=== PATIENT | female | born 1980 | race Hispanic/Latino ===

== ENCOUNTER 2021-07-01 09:57 | Emergency (ER) | payer SELFPAY ==
[2021-07-01] MEDS ORDERED: BUTALB/ACETAMINOPHEN/CAFFEINE TAB PO ONE (10:20)
[2021-07-01] MEDS ORDERED: lamoTRIgine 25 MG TAB PO ONE (10:20)
--- NOTE | 2021-07-01 10:27 | Emergency Department Report ---
HPI - General Chief Complaint: Seizure Time Seen by Provider: 07/01/21 10:12 - HPI HPI: Room 29 The patient is a 40-year-old female present with a chief complaint of seizure. The patient states she has a history of seizures but has been out of her [facility] for approximately 2 days. Patient was told by other residents in the [facility] [place] that she had a seizure. Patient with a woman brought the patient to the emergency department. The patient states she was initially kicked out of the [facility] however she will be able to come back after going to the hospital. Patient states she does not need case management to assist with housing. Patient now complains of a headache which she states she normally has after her seizures and gives it a score of 9/10 ED Past Medical Hx - Past Medical History Previous Medical History?: Yes Hx Seizures: Yes - Surgical History Additional Surgical History: Thyroidectomy - Family History Family history: no significant - Social History Smoking Status: Current Every Day Smoker (1/2 pack/day) Substance Use Type: None (Denies illicit drug use) - Medications Home Medications: Home Medications Medication Instructions Recorded Confirmed Last Taken Type Zonisamide (Nf) [Zonegran (Nf)] 200 mg PO QDAY #90 capsule 07/01/21 Unknown Rx ED Review of Systems ROS: Stated complaint: SEIZURE Other details as noted in HPI Constitutional: no symptoms reported Eyes: denies: eye pain ENT: denies: throat pain Respiratory: no symptoms reported Cardiovascular: denies: chest pain Endocrine: no symptoms reported Gastrointestinal: denies: abdominal pain Genitourinary: denies: dysuria Musculoskeletal: denies: back pain Neurological: headache Physical Exam - Physical Exam Physical Exam: GENERAL: The patient is well-developed well-nourished female lying on stretcher not appearing to be in acute distress. [] HEENT: Normocephalic. Atraumatic. Extraocular motions are intact. Patient has moist mucous membranes. NECK: Supple. Trachea midline CHEST/LUNGS: Clear to auscultation. There is no respiratory distress noted. HEART/CARDIOVASCULAR: Regular. There is no tachycardia. There is no gallop rub or murmur. ABDOMEN: Abdomen is soft, nontender. Patient has normal bowel sounds. There is no abdominal distention. SKIN: There is no rash. There is no edema. There is no diaphoresis. NEURO: The patient is awake, alert, and oriented. The patient is cooperative. The patient has no focal neurologic deficits. The patient has normal speech. Cranial nerves II through XII grossly intact. GCS 15 MUSCULOSKELETAL: There is no evidence of acute injury. ED Medical Decision Making - Lab Data Result diagrams: 07/01/21 10:22 07/01/21 10:22 Laboratory Tests 07/01/21 07/01/21 07/01/21 10:22 10:22 10:22 WBC 12.9 H RBC 4.30 Hgb 15.3 H Hct 43.7 H MCV 102 H MCH 36 H MCHC 35 H RDW 14.3 Plt Count 235 Lymph % (Auto) 14.8 Sandoval % (Auto) 4.1 Eos % (Auto) 0.6 Baso % (Auto) 0.6 Lymph # (Auto) 1.9 Sandoval # (Auto) 0.5 Eos # (Auto) 0.1 Baso # (Auto) 0.1 Seg Neutrophils % 79.9 H Seg Neutrophils # 10.3 H Sodium 137 Potassium 4.8 Chloride 99.0 Carbon Dioxide 19 L Anion Gap 24 BUN 11 Creatinine 0.5 L Estimated GFR > 60 BUN/Creatinine Ratio 22 Glucose 94 Calcium 8.8 Magnesium 2.10 HCG, Qual Negative - Differential Diagnosis Seizure Critical care attestation.: If time is entered above; I have spent that time in minutes in the direct care of this critically ill patient, excluding procedure time. ED Disposition Clinical Impression: Seizure Disposition: 01 HOME / SELF CARE / HOMELESS Is pt being admited?: No Does the pt Need Aspirin: No Condition: Stable Instructions: Seizure, Adult, [id number] Additional Instructions: Return to the emergency department should you develop worsening symptoms, inability to tolerate food or liquids, high fever or any other concerns Prescriptions: Zonisamide (Nf) [Zonegran (Nf)] 200 mg PO QDAY #90 capsule Referrals: PRIMARY MD VIVIEN [Primary Care Provider] - 3-5 Days [facility] [Provider Group] - 3-5 Days JUSTIN CLINTON MD [Staff Physician] - 3-5 Days Time of Disposition: 11:38
[2021-07-01 11:13] LABS: Basophils # (Auto) 0.1 K/mm3 (0.0-0.1); Basophils % (Auto) 0.6 % (0.0-1.8); Eosinophils # (Auto) 0.1 K/mm3 (0.0-0.4); Eosinophils % (Auto) 0.6 % (0.0-4.3); Hematocrit 43.7 % (30.3-42.9); Hemoglobin 15.3 gm/dl (10.1-14.3); Lymphocytes # (Auto) 1.9 K/mm3 (1.2-5.4); Lymphocytes % (Auto) 14.8 % (13.4-35.0); Mean Corpuscular HGB Conc 35 % (30-34); Mean Corpuscular Volume 102 fl (79-97); Monocytes # (Auto) 0.5 K/mm3 (0.0-0.8); Monocytes % (Auto) 4.1 % (0.0-7.3); Platelet Count 235 K/mm3 (140-440); Red Cell Distribution Width 14.3 % (13.2-15.2)
[2021-07-01 11:34] LABS: Blood Urea Nitrogen 11 mg/dL (7-17); Calcium 8.8 mg/dL (8.4-10.2); Hemolysis Index 74
[2021-07-01 11:37] LABS: BUN/Creatinine Ratio 22
[2021-07-01 11:47] VITALS: BP 130/76
== END 2021-07-01 11:56 | disposition home or self-care (01) ==
LOC: ED 09:57
DX: R56.9 Unspecified convulsions (principal); F17.200 Nicotine dependence, unspecified, uncomplicated
CPT/HCPCS: 36415; 80048; 83735; 84703; 85025; 99283

== ENCOUNTER 2021-08-29 10:12 | Emergency (ER) | payer SELFPAY ==
--- NOTE | 2021-08-29 11:08 | Emergency Department Report ---
HPI - General Chief Complaint: Seizure Time Seen by Provider: 08/29/21 10:20 - HPI HPI: 40-year-old female presents to the emergency department with a complaint of having 2 syncopal episode last night while at work at [employer]. She also says that she was told by her roommate at her detention that she had 2 different seizures while sleeping last night. The patient does have a history of seizure disorder for which she takes zonisamide 100 mg twice daily and says that she is compliant. She also has a history of hypothyroidism, hypertension, high cholesterol. Currently the patient complains of a generalized headache at 6 out of 10 in intensity. She denies any vision change, slurred speech, numbness or paresthesias, chest pain, fever. No recent travel or sick contacts at home. Other than her home medication she has not taken anything for symptoms prior to presentation today. Patient says that she was just working, standing or walking around her [employer] when she passed out. She says "I do not remember most of yesterday." She denies any alcohol or illicit drug use. ED Past Medical Hx - Past Medical History Previous Medical History?: Yes Hx Seizures: Yes - Surgical History Past Surgical History?: Yes Hx Appendectomy: No Additional Surgical History: Thyroidectomy - Social History Smoking Status: Current Every Day Smoker Substance Use Type: Alcohol - Medications Home Medications: Home Medications Medication Instructions Recorded Confirmed Last Taken Type Zonisamide (Nf) [Zonegran (Nf)] 200 mg PO QDAY #90 capsule 07/01/21 08/29/21 08/28/21 19:30 Rx AtorvaSTATin [Lipitor] 20 mg PO QHS 08/29/21 08/29/21 08/28/21 19:30 History Levothyroxine Sodium 50 mcg PO 08/29/21 08/28/21 08:00 History [Levothyroxine] Lisinopril [Zestril] 5 mg PO 08/29/21 08/28/21 08:00 History ED Review of Systems ROS: Stated complaint: "I BLACKED OUT" Other details as noted in HPI Comment: All other systems reviewed and negative Constitutional: denies: chills, fever Eyes: denies: eye pain, vision change ENT: denies: ear pain, throat pain Respiratory: denies: cough, shortness of breath Cardiovascular: syncope. denies: chest pain Gastrointestinal: denies: abdominal pain, vomiting Genitourinary: denies: dysuria, discharge Musculoskeletal: denies: back pain, arthralgia Skin: denies: rash, lesions Neurological: headache, other (Seizures). denies: weakness Physical Exam - Physical Exam Vital Signs: Vital Signs 08/29/21 08/29/21 10:18 10:41 Temperature 98.8 F Pulse Rate 75 Respiratory 17 22 Rate Blood Pressure 150/86 Blood Pressure 158/76 [Right] O2 Sat by Pulse 100 99 Oximetry Physical Exam: GENERAL: The patient is well-developed well-nourished. HENT: Normocephalic. Atraumatic. Patient has moist mucous membranes. EYES: Extraocular motions are intact. No nystagmus. NECK: Supple. Trachea is midline. CHEST/LUNGS: Clear to auscultation. There is no respiratory distress noted. HEART/CARDIOVASCULAR: Regular. There is no tachycardia. There is no murmur. ABDOMEN: Abdomen is soft, nontender. Patient has normal bowel sounds. SKIN: Skin is warm and dry. NEURO: The patient is awake, alert, and oriented. The patient is cooperative. The patient has no focal neurologic deficits. Normal speech. Cranial nerves II through XII grossly intact. No facial asymmetry. MUSCULOSKELETAL: There is no tenderness or deformity. There is no limitation range of motion. ED Course Vital Signs 08/29/21 08/29/21 10:18 10:41 Temperature 98.8 F Pulse Rate 75 Respiratory 17 22 Rate Blood Pressure 150/86 Blood Pressure 158/76 [Right] O2 Sat by Pulse 100 99 Oximetry ED Medical Decision Making - Lab Data Result diagrams: 08/29/21 11:19 08/29/21 11:19 Lab Results 08/29/21 08/29/21 08/29/21 Range/Units 11:19 11:19 11:19 WBC 8.9 (4.5-11.0) K/mm3 RBC 4.30 (3.65-5.03) M/mm3 Hgb 14.9 H (10.1-14.3) gm/dl Hct 44.3 H (30.3-42.9) % MCV 103 H (79-97) fl MCH 35 H (28-32) pg MCHC 34 (30-34) % RDW 14.6 (13.2-15.2) % Plt Count 200 (140-440) K/mm3 Lymph % (Auto) 25.6 (13.4-35.0) % Preston % (Auto) 4.6 (0.0-7.3) % Eos % (Auto) 0.8 (0.0-4.3) % Baso % (Auto) 0.6 (0.0-1.8) % Lymph # (Auto) 2.3 (1.2-5.4) K/mm3 Preston # (Auto) 0.4 (0.0-0.8) K/mm3 Eos # (Auto) 0.1 (0.0-0.4) K/mm3 Baso # (Auto) 0.1 (0.0-0.1) K/mm3 Seg Neutrophils % 68.4 (40.0-70.0) % Seg Neutrophils # 6.1 (1.8-7.7) K/mm3 Sodium 138 (137-145) mmol/L Potassium 3.8 (3.6-5.0) mmol/L Chloride 100.2 (98-107) mmol/L Carbon Dioxide 19 L (22-30) mmol/L Anion Gap 23 mmol/L BUN 10 (7-17) mg/dL Creatinine 0.4 L (0.6-1.2) mg/dL Estimated GFR > 60 ml/min BUN/Creatinine Ratio 25 % Glucose 93 (65-100) mg/dL Calcium 8.3 L (8.4-10.2) mg/dL Total Bilirubin 0.30 (0.1-1.2) mg/dL AST 16 (5-40) units/L ALT 14 (7-56) units/L Alkaline Phosphatase 63 (35-129) units/L Troponin T < 0.010 (0.00-0.029) ng/mL Total Protein 7.6 (6.3-8.2) g/dL Albumin 4.6 (3.9-5) g/dL Albumin/Globulin Ratio 1.5 % TSH 17.350 H (0.270-4.200) mlU/mL HCG, Qual (Negative) 08/29/21 Range/Units 11:19 WBC (4.5-11.0) K/mm3 RBC (3.65-5.03) M/mm3 Hgb (10.1-14.3) gm/dl Hct (30.3-42.9) % MCV (79-97) fl MCH (28-32) pg MCHC (30-34) % RDW (13.2-15.2) % Plt Count (140-440) K/mm3 Lymph % (Auto) (13.4-35.0) % Preston % (Auto) (0.0-7.3) % Eos % (Auto) (0.0-4.3) % Baso % (Auto) (0.0-1.8) % Lymph # (Auto) (1.2-5.4) K/mm3 Preston # (Auto) (0.0-0.8) K/mm3 Eos # (Auto) (0.0-0.4) K/mm3 Baso # (Auto) (0.0-0.1) K/mm3 Seg Neutrophils % (40.0-70.0) % Seg Neutrophils # (1.8-7.7) K/mm3 Sodium (137-145) mmol/L Potassium (3.6-5.0) mmol/L Chloride (98-107) mmol/L Carbon Dioxide (22-30) mmol/L Anion Gap mmol/L BUN (7-17) mg/dL Creatinine (0.6-1.2) mg/dL Estimated GFR ml/min BUN/Creatinine Ratio % Glucose (65-100) mg/dL Calcium (8.4-10.2) mg/dL Total Bilirubin (0.1-1.2) mg/dL AST (5-40) units/L ALT (7-56) units/L Alkaline Phosphatase (35-129) units/L Troponin T (0.00-0.029) ng/mL Total Protein (6.3-8.2) g/dL Albumin (3.9-5) g/dL Albumin/Globulin Ratio % TSH (0.270-4.200) mlU/mL HCG, Qual Negative (Negative) - EKG Data -: EKG Interpreted by Wi EKG shows normal: sinus rhythm, axis, intervals, QRS complexes, ST-T waves Rate: normal - EKG Data When compared to previous EKG there are: previous EKG unavailable Interpretation: normal EKG - Radiology Data Radiology results: report reviewed CT head without contrast INDICATION : Syncope x 2, Seizures. TECHNIQUE: Axial imaging performed from the skull apex through the skull base without the use of contrast. All CT scans at this location are performed using CT dose reduction for ALARA by means of automated exposure control. COMPARISON: None FINDINGS: Parenchyma: No evidence of intracranial hemorrhage or mass effect. There are focal hypodensities within the bilateral basal ganglia. These are most pronounced on the left. A similar small hypodensity within the periventricular right frontal lobe is also noted. Ventricles: Ventricles are normal in size and appear symmetric. Soft tissues: Soft tissues including the orbits appear normal. Bones: No acute osseous abnormality. Sinuses: Sinuses and mastoid air cells are clear. IMPRESSION: No evidence of intracranial hemorrhage or mass effect. There are small focal hypodensities within the bilateral basal ganglia as well as right frontal periventricular region. The appearance is nonspecific, but is suggestive of remote areas of infarct/injury which would be unusual for patient of such a young age. An MRI of the brain with and without intravenous contrast is recommended for definitive characterization. - Medical Decision Making This patient presents to the emergency department after saying that she had 2 episodes of syncope yesterday and was told by a roommate that she had 2 seizures overnight in her sleep. At the time of my examination the patient just complains of a headache. She does not have any focal, motor or sensory deficits and her cranial nerves are intact. CT scan of the head without contrast does not show any hemorrhage, large vessel occlusion, or any other acute process. Labs have been mostly unremarkable including CBC, metabolic panel, negative troponin. However the patient's TSH level was elevated at 17 showing hypothyroidism. The patient is on levothyroxine and says that she was just recently restarted on this medication. She was reevaluated multiple times over multiple hours, and was seen ambulatory in the emergency department, and did not have any further syncope or seizure-like activity. Vital signs reassuring including being afebrile. For all these reasons the patient appears safe for discharge home at this time. She has been given outpatient referral for primary care. She will return to the emergency department with any worsening of her symptoms or with any acute distress. Critical Care Time: No Critical care attestation.: If time is entered above; I have spent that time in minutes in the direct care of this critically ill patient, excluding procedure time. ED Disposition Clinical Impression: Seizure Syncope Qualifiers: Syncope type: unspecified Qualified Code(s): R55 - Syncope and collapse Hypothyroid Qualifiers: Hypothyroidism type: unspecified Qualified Code(s): E03.9 - Hypothyroidism, unspecified Hypertension Qualifiers: Hypertension type: primary hypertension Qualified Code(s): I10 - Essential (primary) hypertension Disposition: 01 HOME / SELF CARE / HOMELESS Is pt being admited?: No Condition: Stable Instructions: Hypothyroidism, Managing Your Hypertension, Seizure, Adult, [id number], Syncope, Syncope (ED), Hypertension (ED) Additional Instructions: Please follow-up with a primary care physician in the next few days. I have given you a referral for a local primary care physician, Dr. Barlow, and a primary care clinic, [facility]. I am giving you a referral for a local neurologist, Dr. Bernstein, to follow-up regarding your seizures. Try to stay away from foods that are high in salt and caffeinated products. Keep a blood pressure log. Take your blood pressure medication as prescribed. Take all medications as previously prescribed. Because of your seizures, you cannot drive or operate any heavy machinery for at least 6 months or until cleared by a neurologist. Try to stay away from any alcohol use, excessive caffeine use, and try to get 8 hours of uninterrupted sleep at night. Return to the emergency department with any worsening of your symptoms, new or concerning symptoms not addressed during this current emergency department visit, or with any acute distress. Referrals: PRIMARY MD VIVIEN [Primary Care Provider] - 3-5 Days NHI BARLOW MD [Staff Physician] - 3-5 Days [facility] [Provider Group] - 3-5 Days [facility] [Outside] - 3-5 Days [facility] [Outside] - 3-5 Days Forms: Work/School Release Form(ED) Time of Disposition: 13:41
--- NOTE | 2021-08-29 12:33 | Cat Scan Report ---
CT head without contrast INDICATION : Syncope x 2, Seizures. TECHNIQUE: Axial imaging performed from the skull apex through the skull base without the use of con trast. All CT scans at this location are performed using CT dose reduction for ALARA by means of aut omated exposure control. COMPARISON: None FINDINGS: Parenchyma: No evidence of intracranial hemorrhage or mass effect. There are focal hypodensities wit hin the bilateral basal ganglia. These are most pronounced on the left. A similar small hypodensity w ithin the periventricular right frontal lobe is also noted. Ventricles: Ventricles are normal in size and appear symmetric. Soft tissues: Soft tissues including the orbits appear normal. Bones: No acute osseous abnormality. Sinuses: Sinuses and mastoid air cells are clear. IMPRESSION: No evidence of intracranial hemorrhage or mass effect. There are small focal hypodensities within the bilateral basal ganglia as well as right frontal periventricular region. The appearance is nonspecif ic, but is suggestive of remote areas of infarct/injury which would be unusual for patient of such a young age. An MRI of the brain with and without intravenous contrast is recommended for definitive ch aracterization. Signer Name: Mendez Kaur MD Signed: 08/29/2021 12:29 PM Workstation Name: [id number]
[2021-08-29 12:50] LABS: Basophils # (Auto) 0.1 K/mm3 (0.0-0.1); Basophils % (Auto) 0.6 % (0.0-1.8); Eosinophils # (Auto) 0.1 K/mm3 (0.0-0.4); Eosinophils % (Auto) 0.8 % (0.0-4.3); Hematocrit 44.3 % (30.3-42.9); Hemoglobin 14.9 gm/dl (10.1-14.3); Lymphocytes # (Auto) 2.3 K/mm3 (1.2-5.4); Lymphocytes % (Auto) 25.6 % (13.4-35.0); Mean Corpuscular HGB Conc 34 % (30-34); Mean Corpuscular Volume 103 fl (79-97); Monocytes # (Auto) 0.4 K/mm3 (0.0-0.8); Monocytes % (Auto) 4.6 % (0.0-7.3); Platelet Count 200 K/mm3 (140-440); Red Cell Distribution Width 14.6 % (13.2-15.2)
[2021-08-29 13:12] LABS: Alanine Aminotransferase 14 units/L (7-56); Albumin 4.6 g/dL (3.9-5); Blood Urea Nitrogen 10 mg/dL (7-17); Calcium 8.3 mg/dL (8.4-10.2); Hemolysis Index 19
[2021-08-29 13:19] LABS: BUN/Creatinine Ratio 25
[2021-08-29 14:02] VITALS: BP 174/83
--- NOTE | 2021-08-31 10:16 | Electrocardiograph Report ---
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
== END 2021-08-29 14:12 | disposition home or self-care (01) ==
LOC: ED 10:12
DX: R55 Syncope and collapse (principal); R56.9 Unspecified convulsions; F17.290 Nicotine dependence, other tobacco product, uncomplicated; E03.9 Hypothyroidism, unspecified; I10 Essential (primary) hypertension; Z90.89 Acquired absence of other organs; Z79.899 Other long term (current) drug therapy
CPT/HCPCS: 36415; 70450; 80053; 84443; 84484; 84703; 85025; 93005; 99284

== ENCOUNTER 2022-01-13 15:44 | Emergency (ER) | payer SELFPAY ==
[2022-01-13] MEDS ORDERED: diphenhydrAMINE 50 MG/ML VIAL IV ONE (22:42)
[2022-01-13] MEDS ORDERED: METOCLOPRAMIDE 10 MG/2 ML INJ IV ONE (22:42)
[2022-01-13] MEDS ORDERED: KETOROLAC 30 MG/1 ML INJ IV ONE (22:42)
[2022-01-13 23:30] LABS: Basophils # (Auto) 0.1 K/mm3 (0.0-0.1); Basophils % (Auto) 0.9 % (0.0-1.8); Eosinophils % (Auto) 0.4 % (0.0-4.3); Hematocrit 39.9 % (30.3-42.9); Hemoglobin 13.6 gm/dl (10.1-14.3); Lymphocytes % (Auto) 30.7 % (13.4-35.0); Mean Corpuscular HGB Conc 34 % (30-34); Mean Corpuscular Volume 105 fl (79-97); Monocytes # (Auto) 0.5 K/mm3 (0.0-0.8); Monocytes % (Auto) 7.7 % (0.0-7.3); Platelet Count 134 K/mm3 (140-440); Red Blood Count 3.82 M/mm3 (3.65-5.03); Red Cell Distribution Width 14.3 % (13.2-15.2)
[2022-01-13 23:34] LABS: Bacteria,Urine 3+ /HPF (Negative); Bilirubin,Urine NEG (Negative); Blood,Urine MOD (Negative); Color,Urine Yellow (Yellow); Urobilinogen,Urine < 2.0 mg/dL (<2.0)
[2022-01-13 23:52] LABS: Alanine Aminotransferase 17 units/L (7-56); Albumin 4.2 g/dL (3.9-5); Blood Urea Nitrogen 7 mg/dL (7-17); Calcium 6.8 mg/dL (8.4-10.2); Hemolysis Index 3
[2022-01-14 00:08] LABS: BUN/Creatinine Ratio 18
[2022-01-14] MEDS ORDERED: POTASSIUM CHLORIDE ER 20 MEQ TAB PO ONE (00:11)
[2022-01-14] MEDS ORDERED: levoFLOXacin 500 MG TAB PO ONE (00:12)
[2022-01-14] MEDS ORDERED: NACL 0.9%/KCL 20 MEQ 20 MEQ/1,000 ML BAG IV SCH (01:00)
[2022-01-14 04:49] VITALS: BP 138/75
--- NOTE | 2022-01-14 06:24 | Emergency Department Report ---
ED General Adult HPI - General Chief complaint: Headache Stated complaint: LEFT ARM NUMB/HEADACHE HIP PAIN Source: patient Mode of arrival: Ambulatory Limitations: No Limitations - History of Present Illness Initial comments: Patient is a 41-year-old female with a history of PTSD, anxiety, depression, hypertension, hyperlipidemia migraine headaches and epileptic seizu res presents to the ED with acute exacerbation of her chronic migraine headaches for the last 1 week and low back pain that radiates to the bilateral hips for the last 2 days. Patient also complains of nausea, dysuria, urinary frequency and urgency for the last 2 days. Patient states that the migraine headache exacerbation is typical of her chronic migraine headache and that it is not the worst headache of her life. Patient states that she has been taking [id number] medications with no relief. Patient denies vaginal bleeding, vaginal discharge, fever, chills, cough, traumatic injury, heavy lifting, numbness and tingling or weakness of lower extremities bilaterally, cough, sore throat, abdominal pain, vaginal discharge, diarrhea, nausea and vomiting or change in vision. MD Complaint: Severe headache; low back pain; -: Sudden, week(s) (1) Location: head, back (LOWER), lower extremity (Bilateral hips) Severity scale (0 -10): 7 Quality: aching, sharp Consistency: constant Improves with: none Worsens with: none Associated Symptoms: denies other symptoms, headaches, loss of appetite, malaise. denies: confusion, chest pain, cough, diaphoresis, fever/chills, nausea/vomiting, rash, seizure, shortness of breath, syncope, weakness Treatments Prior to Arrival: NSAID - Related Data Home Medications Medication Instructions Recorded Confirmed Last Taken AtorvaSTATin [Lipitor] 20 mg PO QHS 08/29/21 08/29/21 08/28/21 19:30 Levothyroxine Sodium 50 mcg PO 08/29/21 08/28/21 08:00 [Levothyroxine] Lisinopril [Zestril] 5 mg PO 08/29/21 08/28/21 08:00 Previous Rx's Medication Instructions Recorded Last Taken Type Zonisamide (Nf) [Zonegran (Nf)] 200 mg PO QDAY #90 capsule 07/01/21 08/28/21 19:30 Rx Butalb/Acetamin/Caff 50-325-40 1 - 2 tab PO Q6HR PRN #15 tab 01/14/22 Unknown Rx [Fioricet 50-325-40] Ondansetron [Zofran Odt] 4 mg PO Q8HR PRN #15 tab.rapdis 01/14/22 Unknown Rx Potassium Chloride [Klor-Con M20] 20 meq PO Q12H #12 tab 01/14/22 Unknown Rx SUMAtriptan SUCCINATE [Imitrex] 50 mg PO BID #30 tab 01/14/22 Unknown Rx levoFLOXacin [Levaquin TAB] 500 mg PO QDAY #10 tablet 01/14/22 Unknown Rx Allergies Allergy/AdvReac Type Severity Reaction Status Date / Time aspirin Allergy Unknown Verified 07/01/21 10: ibuprofen Allergy Unknown Verified 07/01/21 10: Penicillins Allergy Unknown Verified 07/01/21 10:01 Sulfa (Sulfonamide Allergy Unknown Verified 07/01/21 10:01 Antibiotics) ED Review of Systems ROS: Stated complaint: LEFT ARM NUMB/HEADACHE HIP PAIN Other details as noted in HPI Constitutional: denies: chills, fever Eyes: denies: eye pain, eye discharge, vision change ENT: denies: ear pain, throat pain Respiratory: denies: cough, shortness of breath, wheezing Cardiovascular: denies: chest pain, palpitations Endocrine: no symptoms reported Gastrointestinal: nausea. denies: abdominal pain, vomiting, diarrhea Genitourinary: urgency, dysuria, frequency. denies: hematuria, discharge, abnormal menses, dyspareunia Musculoskeletal: back pain (Low back pain), arthralgia (Bilateral hip pain). d enies: joint swelling Skin: denies: rash, lesions Neurological: headache. denies: weakness, paresthesias Psychiatric: denies: anxiety, depression Hematological/Lymphatic: denies: easy bleeding, easy bruising ED Past Medical Hx - Past Medical History Previous Medical History?: Yes Hx Hypertension: Yes Hx Headaches / Migraines: Yes Hx Seizures: Yes Hx Psychiatric Treatment: Yes (PTSD, Major depressive disorder) Additional medical history: Hyperlipidemia - Surgical History Past Surgical History?: Yes Hx Appendectomy: No Additional Surgical History: Thyroidectomy - Social History Smoking Status: Current Every Day Smoker Substance Use Type: Alcohol - Medications Home Medications: Home Medications Medication Instructions Recorded Confirmed Last Taken Type Zonisamide (Nf) [Zonegran (Nf)] 200 mg PO QDAY #90 capsule 07/01/21 08/29/21 08/28/21 19:30 Rx AtorvaSTATin [Lipitor] 20 mg PO QHS 08/29/21 08/29/21 08/28/21 19:30 History Levothyroxine Sodium 50 mcg PO 08/29/21 08/28/21 08:00 History [Levothyroxine] Lisinopril [Zestril] 5 mg PO 08/29/21 08/28/21 08:00 History Butalb/Acetamin/Caff 50-325-40 1 - 2 tab PO Q6HR PRN #15 tab 01/14/22 Unknown Rx [Fioricet 50-325-40] Ondansetron [Zofran Odt] 4 mg PO Q8HR PRN #15 tab.rapdis 01/14/22 Unknown Rx Potassium Chloride [Klor-Con M20] 20 meq PO Q12H #12 tab 01/14/22 Unknown Rx SUMAtriptan SUCCINATE [Imitrex] 50 mg PO BID #30 tab 01/14/22 Unknown Rx levoFLOXacin [Levaquin TAB] 500 mg PO QDAY #10 tablet 01/14/22 Unknown Rx ED Physical Exam - General Limitations: No Limitations General appearance: alert, in no apparent distress - Head Head exam: Present: atraumatic, normocephalic, normal inspection - Eye Eye exam: Present: normal appearance, PERRL, EOMI Pupils: Present: normal accommodation - ENT ENT exam: Present: normal exam, normal orophraynx, mucous membranes moist, TM's normal bilaterally, normal external ear exam - Neck Neck exam: Present: normal inspection, full ROM. Absent: tenderness - Respiratory Respiratory exam: Present: normal lung sounds bilaterally. Absent: respiratory distress, wheezes, rales, rhonchi, chest wall tenderness, accessory muscle use, decreased breath sounds, other - Cardiovascular Cardiovascular Exam: Present: regular rate, normal rhythm, normal heart sounds. Absent: systolic murmur, diastolic murmur, rubs, gallop - GI/Abdominal GI/Abdominal exam: Present: soft, normal bowel sounds. Absent: tenderness, guarding, rebound, hyperactive bowel sounds, hypoactive bowel sounds, or ganomegaly, mass, bruit - Extremities Exam Extremities exam: Present: normal inspection, full ROM, normal capillary refill. Absent: tenderness - Back Exam Back exam: Present: normal inspection, full ROM, tenderness (Palpable lumbosacral paraspinal musculoskeletal tenderness), muscle spasm, paraspinal tenderness. Absent: CVA tenderness (R), CVA tenderness (L), vertebral tenderness - Neurological Exam Neurological exam: Present: alert, oriented X3, CN II-XII intact, normal gait, reflexes normal - Psychiatric Psychiatric exam: Present: normal affect, normal mood - Skin Skin exam: Present: warm, dry, intact, normal color. Absent: rash ED Course Vital Signs 01/13/22 01/14/22 15:50 04:48 Temperature 98.9 F Pulse Rate 76 62 Respiratory 20 16 Rate Blood Pressure 177/70 Blood Pressure 138/75 [Right] O2 Sat by Pulse 97 97 Oximetry ED Medical Decision Making - Lab Data Result diagrams: 01/13/22 23:06 01/14/22 06:04 - Medical Decision Making This is a 41-year-old female with a history of PTSD, anxiety, depression, hypertension, hyperlipidemia migraine headaches and epileptic seizures presents to the ED with acute exacerbation of her chronic migraine headaches for the last 1 week and low back pain that radiates to the bilateral hips for the last 2 days. Patient also complains of nausea, dysuria, urinary frequency and urgency for the last 2 days. Patient states that the migraine headache exacerbation is typical of her chronic migraine headache and that it is not the worst headache of her life. Patient states that she has been taking [id number] medications with no relief. In the ED, patient is alert and oriented x3 and is not in any distress. Patient was treated for pain in the ED. Urinalysis showed significant urinary tract infection. Patient also received antibiotics treatment in the ED for acute urinary tract infection. Lab test results were reviewed and are all nonactionable except for acute hypokalemia of 2.7 mmol/L. EKG showed sinus rhythm with a ventricular rate of 63 bpm and a prolonged QT interval. Patient was treated in the ED for acute hypokalemia with potassium chloride 40 mEq p.o. x1, and 20 mEq IV in half-normal saline 1 L IV x1. On reevaluation, patient's pain resolved medication. Repeat BMP showed acute hypokalemia of 3.0 mmol/L. Patient was observed in the ED for over 4 hours and her symptoms of headache, body aches and low back pain resolved while in the ED. Patient was therefore discharged home on prescription of potassium chloride 20 mg p.o. twice a day, pain medications and antibiotics and was advised to follow-up with her primary care physician in 5 to 7 days for reevaluation. Patient was advised to return to the ED immediately if symptoms get worse. - Differential Diagnosis Muscle spasm; chronic pain; migraine headaches; UTI; muscle strain Critical care attestation.: If time is entered above; I have spent that time in minutes in the direct care of this critically ill patient, excluding procedure time. ED Disposition Clinical Impression: Spasm of muscle of lower back, Acute urinary tract infection, Acute hypokalemia Headache, chronic migraine without aura, intractable Qualifiers: Status migrainosus presence: with status migrainosus Qualified Code(s): G43.711 - Chronic migraine without aura, intractable, with status migrainosus Acute low back pain without sciatica Qualifiers: Back pain laterality: bilateral Qualified Code(s): M54.50 - Low back pain, unspecified Disposition: 01 HOME / SELF CARE / HOMELESS Is pt being admited?: No Does the pt Need Aspirin: No Condition: Stable Instructions: Muscle Cramps and Spasms, [id number], Urinary Tract Infection, Adult, [id number]-[id number], Recurrent Migraine Headache, [id number] Additional Instructions: All lab test results were reviewed and are all nonactionable except for acute hypokalemia of 2.7 mmol/L. In addition urinalysis also showed significant urinary tract infection. Therefore take medication as advised, drink plenty of fluids, follow-up with your primary care physician in 7 to 10 days for reevaluation. Return to the ED immediately if symptoms get worse. Prescriptions: Butalb/Acetamin/Caff 50-325-40 [Fioricet 50-325-40] 1 - 2 tab PO Q6HR PRN #15 tab PRN Reason: Headache SUMAtriptan SUCCINATE [Imitrex] 50 mg PO BID #30 tab Potassium Chloride [Klor-Con M20] 20 meq PO Q12H #12 tab levoFLOXacin [Levaquin TAB] 500 mg PO QDAY #10 tablet Ondansetron [Zofran Odt] 4 mg PO Q8HR PRN #15 tab.rapdis PRN Reason: Nausea Referrals: [facility] [Provider Group] - 7-10 days Time of Disposition: 06:26 Print Language: GREENLANDIC
[2022-01-14 06:34] LABS: Blood Urea Nitrogen 7 mg/dL (7-17); Calcium 6.4 mg/dL (8.4-10.2); Hemolysis Index 24
[2022-01-14 06:36] LABS: BUN/Creatinine Ratio 18
--- NOTE | 2022-01-14 10:49 | Electrocardiograph Report ---
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
== END 2022-01-14 06:50 | disposition home or self-care (01) ==
LOC: ED 15:44
DX: M62.830 Muscle spasm of back (principal); M54.50 Low back pain, unspecified; G43.709 Chronic migraine without aura, not intractable, without status migrainosus; N39.0 Urinary tract infection, site not specified; E87.6 Hypokalemia; I10 Essential (primary) hypertension; F32.9 Major depressive disorder, single episode, unspecified; F17.200 Nicotine dependence, unspecified, uncomplicated; Z72.89 Other problems related to lifestyle; Z79.899 Other long term (current) drug therapy; Z88.6 Allergy status to analgesic agent; Z88.0 Allergy status to penicillin; Z88.2 Allergy status to sulfonamides
CPT/HCPCS: 36415; 80048; 80053; 81001; 84484; 85025; 87086; 93005; 96374; 96375; 99283; J1200; J1885; J2765; J3480

== ENCOUNTER 2022-01-29 08:46 | Emergency (ER) | payer SELFPAY ==
[2022-01-29] MEDS ORDERED: SODIUM CHLORIDE 0.9% 1000 ML 1,000 ML IV ONE (09:08)
--- NOTE | 2022-01-29 09:55 | XRay Report ---
CHEST 1 VIEW 01/29/2022 9:14 AM INDICATION / CLINICAL INFORMATION: Dyspnea. COMPARISON: None available. FINDINGS: SUPPORT DEVICES: None. HEART / MEDIASTINUM: No significant abnormality. LUNGS / PLEURA: No significant pulmonary or pleural abnormality. No pneumothorax. ADDITIONAL FINDINGS: No significant additional findings. IMPRESSION: 1. No acute findings. Signer Name: Jean Machado MD Signed: 01/29/2022 9:50 AM Workstation Name: Interview
[2022-01-29 10:08] LABS: Basophils # (Auto) 0.1 K/mm3 (0.0-0.1); Basophils % (Auto) 0.9 % (0.0-1.8); Eosinophils # (Auto) 0.1 K/mm3 (0.0-0.4); Hematocrit 41.2 % (30.3-42.9); Hemoglobin 14.4 gm/dl (10.1-14.3); Lymphocytes # (Auto) 1.9 K/mm3 (1.2-5.4); Lymphocytes % (Auto) 21.4 % (13.4-35.0); Mean Corpuscular HGB Conc 35 % (30-34); Mean Corpuscular Volume 102 fl (79-97); Monocytes # (Auto) 0.7 K/mm3 (0.0-0.8); Monocytes % (Auto) 7.6 % (0.0-7.3); Platelet Count 233 K/mm3 (140-440); Red Blood Count 4.04 M/mm3 (3.65-5.03); Red Cell Distribution Width 14.3 % (13.2-15.2)
[2022-01-29 10:38] LABS: Alanine Aminotransferase 17 units/L (7-56); Albumin 4.3 g/dL (3.9-5); Blood Urea Nitrogen 7 mg/dL (7-17); Hemolysis Index 10
[2022-01-29 10:41] LABS: BUN/Creatinine Ratio 14
[2022-01-29 10:42] LABS: Calcium 6.1 mg/dL (8.4-10.2)
[2022-01-29 10:43] LABS: Bilirubin,Direct < 0.2 mg/dL (0-0.2)
[2022-01-29 10:43] LABS: Bilirubin,Urine NEG (Negative); Blood,Urine SM (Negative); Color,Urine Yellow (Yellow); Hyaline Casts,Urine 4 /LPF; Mucus,Urine FEW /HPF; Urobilinogen,Urine < 2.0 mg/dL (<2.0)
[2022-01-29] MEDS ORDERED: POTASSIUM CHLORIDE ER 20 MEQ TAB PO ONE (10:48)
[2022-01-29 10:49] LABS: Amphetamine Screen,Urine Negative; Benzodiazepines Screen,Urine Negative; Cocaine Screen,Urine Negative; Methadone Screen,Urine Negative; Opiate Screen,Urine Negative
[2022-01-29 11:31] LABS: Cannabinoid Screen,Urine Positive
--- NOTE | 2022-01-29 11:58 | Emergency Department Report ---
ED Seizure HPI - General Chief Complaint: Seizure Stated Complaint: SEIZURE Time Seen by Provider: 01/29/22 08:56 Source: EMS Mode of arrival: Stretcher Limitations: No Limitations - History of Present Illness Initial Comments: seizure x1. PMH of seizures; reports compliance with medications Complaint: seizure -: Sudden, hour(s) Description of Episode: loss of consciousness, tonic-clonic movement Witnessed:: No Trauma: No Seizure History: known seizure disorder - Related Data Home Medications Medication Instructions Recorded Confirmed Last Taken AtorvaSTATin [Lipitor] 20 mg PO QHS 08/29/21 08/29/21 08/28/21 19:30 Levothyroxine Sodium 50 mcg PO 08/29/21 08/28/21 08:00 [Levothyroxine] Lisinopril [Zestril] 5 mg PO 08/29/21 08/28/21 08:00 Previous Rx's Medication Instructions Recorded Last Taken Type Zonisamide (Nf) [Zonegran (Nf)] 200 mg PO QDAY #90 capsule 07/01/21 08/28/21 19:30 Rx Butalb/Acetamin/Caff 50-325-40 1 - 2 tab PO Q6HR PRN #15 tab 01/14/22 Unknown Rx [Fioricet 50-325-40] Ondansetron [Zofran Odt] 4 mg PO Q8HR PRN #15 tab.rapdis 01/14/22 Unknown Rx Potassium Chloride [Klor-Con M20] 20 meq PO Q12H #12 tab 01/14/22 Unknown Rx SUMAtriptan SUCCINATE [Imitrex] 50 mg PO BID #30 tab 01/14/22 Unknown Rx levoFLOXacin [Levaquin TAB] 500 mg PO QDAY #10 tablet 01/14/22 Unknown Rx Allergies Allergy/AdvReac Type Severity Reaction Status Date / Time aspirin Allergy Unknown Verified 07/01/21 10:01 ibuprofen Allergy Unknown Verified 07/01/21 10:01 Penicillins Allergy Unknown Verified 07/01/21 10:01 Sulfa (Sulfonamide Allergy Unknown Verified 07/01/21 10:01 Antibiotics) ED Review of Systems ROS: Stated complaint: SEIZURE Other details as noted in HPI Constitutional: denies: chills, fever Eyes: denies: eye pain, eye discharge, vision change ENT: denies: ear pain, throat pain Respiratory: denies: cough, shortness of breath, wheezing Cardiovascular: denies: chest pain, palpitations Endocrine: no symptoms reported Gastrointestinal: denies: abdominal pain, nausea, diarrhea Genitourinary: denies: urgency, dysuria, discharge Musculoskeletal: denies: back pain, joint swelling, arthralgia Skin: denies: rash, lesions Neurological: denies: headache, weakness, paresthesias Psychiatric: denies: anxiety, depression Hematological/Lymphatic: denies: easy bleeding, easy bruising ED Past Medical Hx - Past Medical History Hx Hypertension: Yes Hx Headaches / Migraines: Yes Hx Seizures: Yes Hx Psychiatric Treatment: Yes (PTSD, Major depressive disorder) Additional medical history: Hyperlipidemia - Surgical History Hx Appendectomy: No Additional Surgical History: Thyroidectomy - Social History Smoking Status: Current Every Day Smoker Substance Use Type: Alcohol - Medications Home Medications: Home Medications Medication Instructions Recorded Confirmed Last Taken Type Zonisamide (Nf) [Zonegran (Nf)] 200 mg PO QDAY #90 capsule 07/01/21 08/29/21 08/28/21 19:30 Rx AtorvaSTATin [Lipitor] 20 mg PO QHS 08/29/21 08/29/21 08/28/21 19:30 History Levothyroxine Sodium 50 mcg PO 08/29/21 08/28/21 08:00 History [Levothyroxine] Lisinopril [Zestril] 5 mg PO 08/29/21 08/28/21 08:00 History Butalb/Acetamin/Caff 50-325-40 1 - 2 tab PO Q6HR PRN #15 tab 01/14/22 Unknown Rx [Fioricet 50-325-40] Ondansetron [Zofran Odt] 4 mg PO Q8HR PRN #15 tab.rapdis 01/14/22 Unknown Rx Potassium Chloride [Klor-Con M20] 20 meq PO Q12H #12 tab 01/14/22 Unknown Rx SUMAtriptan SUCCINATE [Imitrex] 50 mg PO BID #30 tab 01/14/22 Unknown Rx levoFLOXacin [Levaquin TAB] 500 mg PO QDAY #10 tablet 01/14/22 Unknown Rx ED Physical Exam - General Limitations: No Limitations General appearance: alert, in no apparent distress - Head Head exam: Present: atraumatic, normocephalic - Eye Eye exam: Present: normal appearance - ENT ENT exam: Present: mucous membranes moist - Neck Neck exam: Present: normal inspection - Respiratory Respiratory exam: Present: normal lung sounds bilaterally. Absent: respiratory distress - Cardiovascular Cardiovascular Exam: Present: regular rate, normal rhythm. Absent: systolic murmur, diastolic murmur, rubs, gallop - GI/Abdominal GI/Abdominal exam: Present: soft, normal bowel sounds - Extremities Exam Extremities exam: Present: normal inspection - Back Exam Back exam: Present: normal inspection - Neurological Exam Neurological exam: Present: alert, oriented X3 - Psychiatric Psychiatric exam: Present: normal affect, normal mood - Skin Skin exam: Present: warm, dry, intact, normal color. Absent: rash ED Course Vital Signs 01/29/22 01/29/22 08:56 09:23 Temperature 97.2 F L Pulse Rate 78 70 Respiratory 18 20 Rate Blood Pressure 142/78 122/89 [Right] O2 Sat by Pulse 98 99 Oximetry ED Medical Decision Making - Lab Data Result diagrams: 01/29/22 10:00 01/29/22 10:00 - EKG Data -: EKG Interpreted by Ut EKG shows normal: sinus rhythm Rate: normal - EKG Data Interpretation: no acute changes - Radiology Data Radiology results: report reviewed, image reviewed - Medical Decision Making work up negative potasium replaced back to diane ramires for seizure Critical care attestation.: If time is entered above; I have spent that time in minutes in the direct care of this critically ill patient, excluding procedure time. ED Disposition Clinical Impression: Seizure Disposition: 01 HOME / SELF CARE / HOMELESS Is pt being admited?: No Does the pt Need Aspirin: No Condition: Stable Referrals: PRIMARY CARE, [Primary Care Provider] - 3-5 Days
[2022-01-29 12:24] VITALS: BP 127/61
== END 2022-01-29 13:09 | disposition home or self-care (01) ==
LOC: ED 08:46
DX: R56.9 Unspecified convulsions (principal); I10 Essential (primary) hypertension; G43.909 Migraine, unspecified, not intractable, without status migrainosus; F32.9 Major depressive disorder, single episode, unspecified; F17.200 Nicotine dependence, unspecified, uncomplicated; Z79.899 Other long term (current) drug therapy; Z88.6 Allergy status to analgesic agent; Z88.1 Allergy status to other antibiotic agents; Z88.0 Allergy status to penicillin; Z09 Encounter for follow-up examination after completed treatment for conditions other than malignant neoplasm
CPT/HCPCS: 36415; 71045; 80053; 80076; 80307; 81001; 85025; 93005; 96360; 99284; J7030; 80320; G0480